=== PATIENT | male | born 1955 | race Caucasian/White ===

== ENCOUNTER 2023-03-10 14:05 | Outpatient (CLI) | payer MEDICARE, BC, SELFPAY | END 2023-03-10 14:06 | disposition home or self-care (01) | PROVIDERS: PCP Family Medicine; Visit Provider Family Medicine | DX: M17.12 Unilateral primary osteoarthritis, left knee (principal); M25.562 Pain in left knee | CPT/HCPCS: 64454 ==

== ENCOUNTER 2023-03-24 12:53 | Outpatient (CLI) | payer MEDICARE, BC, SELFPAY | END 2023-03-24 12:54 | disposition home or self-care (01) | LOC: INJ CL 12:53 | PROVIDERS: PCP Family Medicine; Visit Provider Family Medicine | DX: M17.12 Unilateral primary osteoarthritis, left knee (principal); G89.29 Other chronic pain; M25.562 Pain in left knee | CPT/HCPCS: 64624; J2250; J3010 ==

== ENCOUNTER 2024-05-10 13:44 | Outpatient (RCR) | payer MEDICARE, BC, SELFPAY ==
--- NOTE | 2024-05-10 15:21 | PT.OPEX ---
[facility] Eval Start: 05/10/24 07:27 Freq: Status: Active Protocol: Document 05/10/24 07:27 RASHMI (Rec: 05/10/24 15:20 RASHMI [id number]) E-signed By Ishmael Marte DPT Physical Therapy Outpatient Evaluation Insurance Information Recert Due Date 08/08/24 Insurance Name Medicare B Medical Diagnosis L TKA Treating Diagnosis L knee oa muscle weakness Referring MD leti naranjo Subjective Subjective Freedom comes into clinic for his pre-op visit prior to his his L TKA surgery on 05/31/24. He states he has been postponing this surgery for several years now and has finally found it was time to have it done. Is an avid richard and pushed his surgery back into order to get through the hunting season. He feels like his strength is good but does feel limited in terms of his motion and pain is notable at this point. Does have plans to have R knee done around 3 months after L. Pain Comments 01/01 Current Work Status Retired Precautions Treatment Precautions/Contraindications depression htn Objective Other/Pertinent Objective GAIT/FUNCTIONAL MOBILITY ambulates with antalgic pattern, decreased stance on LLE KNEE ROM L5-100 -painful towards end range LE MMT: WNL bilaterally Assessment Assessment/Impression Pt is a 69 yr old male who presents with concerns of L knee OA. . Patient also has notable objective findings including limited ROM, impaired gait , decreased functional mobility also likely contributing to the problem. Patient is a good candidate for skilled therapy to target deficits described above. Skilled PT intervention is necessary for use of therapeutic exercise manual therapy, neuromuscular re- education, gait training, and therapeutic activity. Functional impairments include difficulty with: stairs standing walking . See appropriate sections of PT eval for complete list of goals and POC. D/C plan and criteria is for pt to achieve the goals as listed below or until max rehab potential is met. Pt was agreeable with plan of care and goals established. Plan of Care Rehabilitation Potential Good Physical Therapy Goals GOALS Pt will be independent with HEP within 1 visit to allow for independence and continued improvement past formal therapy Coordination/Communication With Referral Source Treatment Plan/Direct Interventions Therapeutic Exercises Frequency/Duration 1 visit prior to surgical date Patient Will Be Discharged From Therapy Independent w/HEP Evaluation Billing Untimed Code Treatment Minutes 15 Complexity Low Certification Information Initial Certification Date 05/10/24 Ending Certification Date 08/08/24 Provider Signature Required Yes Provider Signature Shows Agreement With POC & Medical Necessity Physician NPI Number Write NPI# Here Physician Comment/Change : Physician Signature & Date Requested Please Sign/Date Here
== END 2024-09-07 23:59 | disposition home or self-care (01) ==
PROVIDERS: PCP Family Medicine; Visit Provider Orthopaedic Surgery
DX: M17.32 Unilateral post-traumatic osteoarthritis, left knee (principal); Z96.652 Presence of left artificial knee joint; Z51.89 Encounter for other specified aftercare
CPT/HCPCS: 97110; 97161

== ENCOUNTER 2024-05-31 06:12 | Day surgery (SDC) | payer MEDICARE, BC, SELFPAY ==
[2024-05-31] VITALS (30 sets, daily range): BP systolic 70–207; BP diastolic 28–139; PULSE 62–89; RESP 14–16; TEMP 36.6–36.9; O2SAT 91–99; BMI 32.1
[2024-05-31] MEDS: ACETAMINOPHEN 500 MG TABLET 1000 MG PO ×2 (06:30→12:13)
[2024-05-31] MEDS: OXYCODONE (CR) 10 MG TAB.ER.12H PO (06:30)
[2024-05-31] MEDS: LACTATED RINGERS 1000 ML 1,000 ML 100 ML IV ×2 (06:30→10:01)
[2024-05-31] MEDS: SODIUM CHLORIDE 0.9 % (FLUSH) 10 ML SYRINGE IVF (06:45)
[2024-05-31] MEDS: MIDAZOLAM HCL 1 MG/ML inj IVP (07:10)
[2024-05-31] MEDS: fentaNYL 100 MCG/2 ML inj IVP (07:10)
--- NOTE | 2024-05-31 07:22 | SUR.PREOP ---
TIME?OUT:?0710 PT/gregorio quesada RN/[place] guidry MDA?VERIFICATION?OF?SURGICAL?SITE,?PROCEDURE,?AND?CONSENT OBTAINED?PRIOR?TO?INVASIVE?PROCEDURE.
[2024-05-31] MEDS: CEFAZOLIN 2 GM INJ IVP (07:30)
[2024-05-31] MEDS: TRANEXAMIC ACID 100 MG/ML INJ 1000 MG IV (07:39)
--- NOTE | 2024-05-31 08:09 | W.ANESCHARGE ---
Anesthesia Charges Start Date/Time Anesthesia Start Date: 05/31/24 Anesthesia Start Time: 07:18 Stop Date/Time Anesthesia Stop Date: 05/31/24 Anesthesia Stop Time: 09:41
--- NOTE | 2024-05-31 08:10 | W.PM.NB ---
Nerve Block Nerve Block Time Seen by Provider: 07:14 Date Seen: 05/31/24 Type of block requested by surgeon for post-operative analgesia: adductor canal Side: left Time out performed: Yes Verification of patient name: Yes Verification of date of : Yes Site marking: site marked Name of person performing procedure: Nitin Continuous monitoring Was continuous monitoring of O2 sat, B/P, potline monitor, recorded every 15 minutes?: Yes Procedure Checklist: sterile prep, needles and gloves Ultrasound guided. Images saved: Yes Medications given in 5ml increments after negative aspiration: Marcaine %: 0.25 mL: 15 Needle gauge: 20 Precedex (mcg): 25 Patient tolerated procedure well: Yes Block Charges Block Charge (with Pro Fee): Femoral Nerve Use of Ultrasound Machine for Block: Yes- US Guidance/pain block
--- NOTE | 2024-05-31 08:10 | W.PM.NB ---
Nerve Block Nerve Block Time Seen by Provider: 07:14 Date Seen: 05/31/24 Type of block requested by surgeon for post-operative analgesia: geniculars Side: left Time out performed: Yes Verification of patient name: Yes Verification of date of : Yes Site marking: site marked Name of person performing procedure: Nitin Continuous monitoring Was continuous monitoring of O2 sat, B/P, cardiac tech, recorded every 15 minutes?: Yes Procedure Checklist: sterile prep, needles and gloves Ultrasound guided. Images saved: Yes Medications given in 5ml increments after negative aspiration: Marcaine %: 0.25 mL: 9 Needle gauge: 25 Patient tolerated procedure well: Yes Block Charges Block Charge (with Pro Fee): Genicular Nerve Block
--- NOTE | 2024-05-31 09:11 | CRLHL7_ITS ---
For Patients: As a result of the Century Cures Act, medical imaging exams and procedure reports are released immediately into your electronic medical record. You may view this report before your referring provider. If you have questions, please contact your health care provider. Indication: Postop Technique: Two views left knee Findings/Impression: Hardware from a left total knee arthroplasty is in satisfactory position. Bone alignment is normal. No sign of acute fracture. Postop changes are within normal limits. Old ACL fixation screws are present. Dictated by Maico Wolff MD @ 05/31/2024 10:36:06 AM (Electronically Signed)
--- NOTE | 2024-05-31 09:16 | P.ORPRC_ITS ---
Procedure Note Date of procedure: 05/31/24 Procedure: PREOPERATIVE DIAGNOSIS: Left knee osteoarthritis POSTOPERATIVE DIAGNOSIS: Left knee osteoarthritis NAME OF OPERATION: Left total knee arthroplasty SURGEON: Abner Murguia MD REGISTERED NURSE BEHAVIORAL HEALTH: SHELLY Piña ANESTHESIA: Spinal ESTIMATED BLOOD LOSS: 0 mL COMPLICATIONS: None SPECIMENS: None DRAINS: None PREOPERATIVE ANTIBIOTICS: Ancef 2 grams IMPLANTS: 1. J&J Attune # 7 posterior stabilized femur 2. #6 fixed-bearing tibia 3. # 7 posterior stabilized, 5 mm fixed-bearing polyethylene 4. 38 patella INDICATIONS: The patient is a 69-year-old with a longstanding history of severe, unrelenting left knee pain secondary to end-stage (grade IV) left knee osteoarthritis. Despite appropriate nonoperative management, including activity modification, anti-inflammatories, [id number] pain medication, bracing, ph ysical therapy, and injections they continue to have pain and disability. He has previously undergone patellar tendon autograft ACL reconstruction. Operative intervention was offered. The risks, benefits and expected outcomes were discussed in detail. These included but were not limited to: Infection, bleeding, injury to blood vessel or nerve, venous thromboembolism. All questions were answered to their satisfaction. Use of an maintenance assistant was necessary throughout the case for patient positioning and safety, soft tissue retraction, and closure. PROCEDURE: Spinal anesthesia was administered. The patient was placed supine on the operating table. The maintenance assistant made sure the patient was positioned appropriately. The lower extremity was prepped and draped in the usual sterile fashion. The limb was exsanguinated with the Yusuf bandage. The pneumatic tourniquet was inflated to 300 mmHg. A standard anterior incision was made with the knee in flexion. Subcutaneous dissection was sharply taken through fascial layer #1. Full-thickness medial and lateral flaps were elevated. The maintenance assistant retracted the soft tissues and protected them throughout the case. A standard subvastus approach was made. The patella was subluxed. The infrapatellar fat pad was debrided. The menisci and cruciate ligaments were sharply d?brided. Marginal osteophytes were d?brided with the rongeur. The drill was used to penetrate the femoral canal. The canal was aspirated and irrigated with pulse lavage. The intramedullary femoral guide was placed for a 5-degree valgus cut, removing 12 mm off the distal femur. The saw was used to make the cut. Whitesides line and the trans epicondylar axis were marked. The femoral sizing guide was pinned onto the distal femur. Three degrees of external rotation nicely parallels the transepicondylar axis. Pins were placed for posterior referencing. The four-in-one cutting guide was pinned onto the distal femur. The anterior, posterior, and chamfer cuts were made. The maintenance assistant protected the collateral ligaments. The box cutting guide was pinned. The box cuts were made. The boxed trial was placed and was an excellent fit. Drill holes for the lugs were made. Attention was then turned to the proximal tibia. The extramedullary tibial guide was placed for a neutral varus/valgus cut with 5 degrees of posterior slope, removing 2 mm based off the medial tibial surface. The maintenance assistant protected the collateral ligaments and the neurovascular bundle. The saw was used to make the cut. Trial components were placed. The knee was nicely bal anced in both flexion and extension. The trial components were removed. The tray was placed in appropriate rotation, parallel to our tibial cutting pins. It was pinned by the maintenance assistant and the dr prince and the punch were used. The tray was removed. The punch was used again. We placed a bone plug in the femoral canal. Attention was then turned to the patella. [place] patellar thickness was 24 mm. The lobster claw resection guide was used with the 9.5 mm brice. The saw was used to make the cut. Drill holes were made by the maintenance assistant. The trial was placed and was an excellent fit. Cancellous surfaces were irrigated with pulse lavage and thoroughly dried by the maintenance assistant. We cemented the tibial component, then the femoral component. We impacted the 5 mm polyethylene onto the tibial tray. The knee was brought into full extension. We then cemented the patellar component. Excessive cement was removed. The cement was allowed to harden. The knee was taken through a range of motion and was found to be nicely balanced in both flexion and extension. The patella tracks centrally. The maintenance assistant did a three minute dilute Betadine solution soak. The maintenance assistant irrigated the wound with 3 liters of normal saline via pulse lavage. The maintenance assistant reapproximated the extensor mechanism with #1 Vicryl in an interrupted [id number]-ob-[id number] fashion. The maintenance assistant then ran the extensor mechanism with a #1 PDO Stratafix. The maintenance assistant closed the subcutaneous tissues with a 3-0 Stratafix and the skin with a running 3-0 Stratafix in a subcuticular fashion. Glue was used to seal the skin. The maintenance assistant placed a dry dressing. Sponge and needle counts were correct x2. The patient tolerated the procedure well. There were no apparent complications. They were carefully transferred to the hospital bed and taken to the postanesthesia care unit in satisfactory condition. PLAN: The patient will be mobilized with physical therapy. Aspirin will be used for DVT prophylaxis. They will be discharged to home once medically appropriate.
--- NOTE | 2024-05-31 09:46 | W.ANESCHARGE ---
Anesthesia Charges Start Date/Time Anesthesia Start Date: 05/31/24 Anesthesia Start Time: 07:18 Stop Date/Time Anesthesia Stop Date: 05/31/24 Anesthesia Stop Time: 09:41
[2024-05-31] MEDS: fentaNYL 100 MCG/2 ML inj 50 MCG IVP ×2 (10:36→10:41)
[2024-05-31] MEDS: hydrOXYzine pamoate 25 MG CAPSULE PO (11:34)
[2024-05-31] MEDS: OXYCODONE 5 MG TABLET PO ×2 (11:40→12:23)
[2024-05-31] MEDS: LABETALOL HCL 5 MG/ML inj IVP ×2 (12:44→13:10)
--- NOTE | 2024-05-31 13:11 | SUR.PHASEII ---
Patient battling pain control during phase II. See eMAR for medications given. Patient unable to be weaned off oxygen - currently on 3L NC. BP increasing - anesthesia updated - 5mg IV Labetolol given x2 for a total of 10mg. Patient educated that maybe trying to void will help BP as well, patient declined the need to void and did not want to try at this time.
== END 2024-05-31 14:45 | disposition home or self-care (01) ==
PROVIDERS: PCP Family Medicine; Visit Provider Orthopaedic Surgery
PROC: (CPT 27447; principal; 2024-05-31 07:15)
DX: M17.12 Unilateral primary osteoarthritis, left knee (principal); G89.18 Other acute postprocedural pain; I10 Essential (primary) hypertension
CPT/HCPCS: 27447; 01402; 64447; 64454; 73560; 76942; 97116; 97161; 97530; A9270; C1776; J0665; J0690; J2250; J2371; J2704; J3010; J3490; J7120